=== PATIENT | male | born 1975 | race Caucasian/White ===

== ENCOUNTER 2018-12-05 19:17 | Emergency (ER) | payer OTHER ==
[~2018-12-05] VITALS: Ht 177.8 cm; Wt 95.7 kg
[2018-12-05 19:20] VITALS: BP 157/98; PULSE 113; RESP 19; Ht 177.8 cm; Wt 95.7 kg
[2018-12-05] MEDS ORDERED: SODI30SP2 NS (21:10)
[2018-12-05] MEDS ORDERED: BENZ-6 PO (21:10)
[2018-12-05] MEDS ORDERED: ALBU18HF INHALATION (21:10)
[2018-12-05] MEDS ORDERED: AZIT250T PO (21:10)
--- NOTE | 2018-12-05 21:52 | ERD ---
ER Documentation Chief Complaint Chief Complaint COUGH AND CONGESTION [id number] HPI 23-year-old male patient with a past medical history of bronchitis, hyperlipidemia presents to the ED complaining of cough that started about 2 weeks ago. States that he has been blowing his nose and he has been getting nosebleeds. Reports that he has been taking [id number]-byl-[id number] medications without relief. States that he feels congested. Denies any chest pain, shortness of breath, wheezing, abdominal pain, nausea, vomiting, neck stiffness. ROS All systems reviewed and are negative except as per history of present illness. Medications Home Meds Active Scripts Albuterol Sulfate* (Ventolin HFA*) 18 Gm Hfa.aer.ad, 2 PUFF INHALATION Q4H, #1 INHALER Prov:SHELDON HORNER PA-C 12/05/18 Benzonatate* (Tessalon Perle*) 100 Mg Capsule, 100 MG PO Q8H PRN for COUGH, #20 CAP Prov:SHELDON HORNER PA-C 12/05/18 Azithromycin* (Zithromax*) 250 Mg Tablet, 250 MG PO .ZPACK DIRECTED, #6 TAB TAKE 500 MG (2 TABS) THE FIRST DAY THEN 250 MG (1 TAB) DAYS 2-5 Prov:SHELDON HORNER PA-C 12/05/18 Sodium Chloride (Saline Nasal Moville) 30 Ml [place], 30 ML NS BID, #1 SPRAY Prov:SHELDON HORNER PA-C 12/05/18 Allergies Allergies: Coded Allergies: No Known Allergy (Unverified , 12/05/18) PMhx/Soc Hx Miscellaneous Medical Probl: Yes (high cholestoral) Hx Alcohol Use: Yes Hx Substance Use: Yes (marijuana) Hx Tobacco Use: Yes Smoking Status: Former smoker FmHx Family History: No diabetes, No coronary disease Physical Exam Vitals Vital Signs Date Temp Pulse Resp B/P (MAP) Pulse Ox O2 O2 Flow FiO2 Time Delivery Rate 12/05/18 99.0 113 19 157/98 98 19:20 (117) Physical Exam Const: Kqj-ykl-ankzlzagx, well-nourished. In no acute distress. Head: Atraumatic, normocephalic Eyes: Normal Conjunctiva without injection. No purulent discharge. PERRL. EOMI ENT: Normal external ear. Ear canal without erythema. Tympanic membrane pearly valladares without effusion or bulging. Nasal canal clear with normal turbinates. Anterior epistaxis noted. Moist oropharynx without tonsillar exudates. Non- erythematous pharynx. Uvula midline. No drooling. No trismus. Neck: Full range of motion. No meningismus. No cervical lymphadenopathy. Resp: Clear to auscultation bilaterally. No wheezing, rhonchi, rales, or crackles. No accessory muscle use. No retractions. Cardio: Regular rate and rhythm. No murmurs, rubs or gallops. Abd: Soft, non tender, non distended. Normal bowel sounds. No palpable masses. No rebound tenderness. No guarding. Skin: No petechiae or rashes Back: No midline tenderness. No CVA tenderness. Ext: No cyanosis, or edema. Neur: Awake and alert. Psych: Normal Mood and Affect Procedures/MDM 43-year-old male patient presents to ED complaining of cough. Patient is afebrile and nontoxic-appearing. This patient presents to the ED with symptoms consistent with bronchitis. Patient will be covered for bacterial etiology. Patient's physical exam include lungs which were clear to auscultation and a normal pulse oximetry. There is a low suspicion for pneumonia, pneumothorax, mononucleosis, pulmonary embolism, epiglottitis, otitis media, otitis externa, viral/strep pharyngitis, sinusitis, myocarditis, pericarditis, endocarditis, peritonsillar abscess, mastoiditis, retropharyngeal abscess, meningitis, sepsis, acute abdomen or other emergent conditions. Fluids, rest, and symptomatic treatment are recommended for the management of patient's symptoms. Patient likely has an anterior epistaxis. Nose clamp was placed for 30 minutes with relief of his symptoms. Low suspicion for posterior epistaxis, intracranial bleed, subarachnoid hemorrhage, meningitis, TIA, stroke, subdural hematoma, epidural hematoma, or other emergent conditions. Diagnosis: Cough, Nosebleed Discharge medications: Ventolin, Tessalon Perles, Zithromax, saline nasal spray Follow up with primary care physician in 1-2 days. Instructed patient to return to the ED sooner for any worsening symptoms. Patient's questions were answered. Patient is hemodynamically stable. Patient understood and agreed with discharge plan. Patient discharged stable. Disclaimer: Inadvertent spelling and grammatical errors are likely due to EHR/dictation software use and do not reflect on the overall quality of patient care. Also, please note that the electronic time recorded on this note does not necessarily reflect the actual time of the patient encounter. Departure Diagnosis: Primary Impression: Cough Additional Impression: Nosebleed Condition: Stable Patient Instructions: Bronchitis, Antiobiotic Treatment (Adult), Epistaxis (Adult) Referrals: [facility] YOU HAVE RECEIVED A MEDICAL SCREENING EXAM AND THE RESULTS INDICATE THAT YOU DO NOT HAVE A CONDITION THAT REQUIRES URGENT TREATMENT IN THE EMERGENCY DEPARTMENT. FURTHER EVALUATION AND TREATMENT OF YOUR CONDITION CAN WAIT UNTIL YOU ARE SEEN IN YOUR DOCTORS OFFICE WITHIN THE NEXT 1-2 DAYS. IT IS YOUR RESPONSIBILITY TO MAKE AN APPOINTMENT FOR FOLOW-UP CARE. IF YOU HAVE A PRIMARY DOCTOR --you should call your primary doctor and schedule an appointment IF YOU DO NOT HAVE A PRIMARY DOCTOR YOU CAN CALL OUR PHYSICIAN REFERRAL HOTLINE AT IF YOU CAN NOT AFFORD TO SEE A PHYSICIAN YOU CAN CHOSE FROM THE FOLLOWING [facility] [address] [facility] [address] [facility] [facility] [address] [facility] [address] [facility] [address] [facility]. [facility]. [address] [facility]. [facility] YOU HAVE RECEIVED A MEDICAL SCREENING EXAM AND THE RESULTS INDICATE THAT YOU DO NOT HAVE A CONDITION THAT REQUIRES URGENT TREATMENT IN THE EMERGENCY DEPARTMENT. FURTHER EVALUATION AND TREATMENT OF YOUR CONDITION CAN WAIT UNTIL YOU ARE SEEN IN YOUR DOCTORS OFFICE WITHIN THE NEXT 1-2 DAYS. IT IS YOUR RESPONSIBILITY TO MAKE AN APPOINTMENT FOR FOLOW-UP CARE. IF YOU HAVE A PRIMARY DOCTOR --you should call your primary doctor and schedule and appointment IF YOU DO NOT HAVE A PRIMARY DOCTOR YOU CAN CALL OUR PHYSICIAN REFERRAL HOTLINE AT . IF YOU CAN NOT AFFORD TO SEE A PHYSICIAN YOU CAN CHOSE FROM THE FOLLOWING [facility] INSTITUTIONS: [facility] [address] [place] [address] [facility] [address] [place] [address] [facility] [address] [place] [address] [facility] URGENT CARE/SPECIALTIES AUDIO VIDEO [place] [address] [facility] [address] [place] [address] OFFICE FAX , [facility] [address] [place] [address] [address], [place] [address] [place] [address] [address]TER[place], [facility] [address] [facility], [address], [facility] [address] [address], [facility] [address] [place] [address] [facility] [address] [place] [address] [address] [facility] [address] - [address] POLLARD, [place] [address] [facility], [facility] [address] [address]OSS, [place] [address] [facility]. [address], [facility] [address] [address] CRUZ, [facility] [address] [place], [place] [id number] Additional Instructions: Call your primary care doctor TOMORROW for an appointment during the next 2-3 days.See the doctor sooner or return here if your condition worsens before your appointment time. SHELDON HORNER PA-C Dec 05, 2018 21:51
== END 2018-12-05 21:15 | disposition home or self-care (01) ==
LOC: FTE 19:17
DX: R05 Cough (principal); R04.0 Epistaxis; Z87.891 Personal history of nicotine dependence
CPT/HCPCS: 99283